=== PATIENT | male | born 1935 | race Caucasian/White ===

== ENCOUNTER → 2016-10-07 | Outpatient (CLI) | payer MEDICARE, BC ==
[~2016-10-07] MED LIST: ALDACTONE 25MG25 M1 PO; COUMADIN 1MG1 MG/TAB PO; COUMADIN1 MG PO; FAMOTIDINE 1010 MG PO; FAMOTIDINE PO; FLOMAX0.4 MG PO; FOSAMAX 70MG TA70 MG PO; GOOD NEIGHBOR P20 MG PO; GOOD NEIGHBOR325 MG PO; K-TAB20 MEQ PO; LEVAQUIN 5500 MG/TA1 PO; LOVENOX80 MG/0.8 SC; MEGACE 40MG40 MG/TAB PO; METOCLOPRAMIDE10 M1 PO; METOCLOPRAMIDE10 MG PO; MIRTAZAPINE15 MG PO; MULTIVITAMIN1 SGL; POTASSIUM20 MEQ PO; REMERON 15M15 MG/TA1 PO; REMERON SOLTAB15 MG PO; TYLENOL 325MG325 MG PO
== END ==
LOC: LAB 14:39
DX: C61 Malignant neoplasm of prostate (principal)

== ENCOUNTER → 2016-10-09 | Outpatient (CLI) | payer MEDICARE, BC | LOC: RAD 07:54 | DX: K70.30 Alcoholic cirrhosis of liver without ascites (principal); K80.20 Calculus of gallbladder without cholecystitis without obstruction ==

== ENCOUNTER → 2016-10-30 | Outpatient (CLI) | payer MEDICARE, BC | LOC: LAB 11:18 | DX: E83.19 Other disorders of iron metabolism (principal); K74.60 Unspecified cirrhosis of liver; K76.89 Other specified diseases of liver; R79.9 Abnormal finding of blood chemistry, unspecified ==

== ENCOUNTER → 2016-12-11 | Outpatient (CLI) | payer MEDICARE, BC | LOC: LAB 16:38 | DX: I10 Essential (primary) hypertension (principal); R10.31 Right lower quadrant pain; E87.6 Hypokalemia; K70.30 Alcoholic cirrhosis of liver without ascites ==

== ENCOUNTER → 2017-01-12 | Outpatient (CLI) | payer MEDICARE, BC ==
[2015-08-14 20:38] VITALS: BP 132/88
== END ==
LOC: LAB 13:46
DX: I10 Essential (primary) hypertension (principal); K70.30 Alcoholic cirrhosis of liver without ascites; M48.06 Spinal stenosis, lumbar region

== ENCOUNTER → 2017-01-19 | Outpatient (CLI) | payer MEDICARE, BC ==
[2015-08-14 20:38] VITALS: BP 132/88
== END ==
LOC: LAB 11:03
DX: R10.31 Right lower quadrant pain (principal); E87.6 Hypokalemia; I10 Essential (primary) hypertension

== ENCOUNTER → 2017-02-06 | Outpatient (CLI) | payer MEDICARE, BC ==
[2015-08-14 20:38] VITALS: BP 132/88
== END ==
LOC: RAD 09:55
DX: M79.605 Pain in left leg (principal); R60.0 Localized edema; I82.813 Embolism and thrombosis of superficial veins of lower extremities, bilateral; I82.4Z2 Acute embolism and thrombosis of unspecified deep veins of left distal lower extremity

== ENCOUNTER → 2017-02-09 | Outpatient (CLI) | payer MEDICARE, BC ==
[2015-08-14 20:38] VITALS: BP 132/88
== END ==
LOC: LAB 08:27
DX: Z51.81 Encounter for therapeutic drug level monitoring (principal); Z79.01 Long term (current) use of anticoagulants; I82.813 Embolism and thrombosis of superficial veins of lower extremities, bilateral; E87.1 Hypo-osmolality and hyponatremia

== ENCOUNTER → 2017-02-10 | Outpatient (CLI) | payer MEDICARE, BC ==
[~2017-02-10] VITALS: Ht 165.1 cm; Wt 63.6 kg
[2017-02-10 09:02] VITALS: BP 120/64
== END ==
LOC: AMSURD 09:05
DX: R63.5 Abnormal weight gain (principal); R60.9 Edema, unspecified; R06.09 Other forms of dyspnea

== ENCOUNTER → 2017-02-12 | Outpatient (CLI) | payer MEDICARE, BC ==
[2017-02-10 09:02] VITALS: BP 120/64
== END ==
LOC: LAB 10:21
DX: Z51.81 Encounter for therapeutic drug level monitoring (principal); Z79.01 Long term (current) use of anticoagulants; I82.813 Embolism and thrombosis of superficial veins of lower extremities, bilateral

== ENCOUNTER → 2017-02-17 | Outpatient (CLI) | payer MEDICARE, BC ==
[2017-02-10 09:02] VITALS: BP 120/64
== END ==
LOC: LAB 10:20
DX: I50.21 Acute systolic (congestive) heart failure (principal); R60.9 Edema, unspecified; R06.09 Other forms of dyspnea; R63.5 Abnormal weight gain; Z51.81 Encounter for therapeutic drug level monitoring; Z79.01 Long term (current) use of anticoagulants; I82.813 Embolism and thrombosis of superficial veins of lower extremities, bilateral

== ENCOUNTER → 2017-02-24 | Outpatient (CLI) | payer MEDICARE, BC ==
[2017-02-10 09:02] VITALS: BP 120/64
== END ==
LOC: LAB 11:51
DX: Z51.81 Encounter for therapeutic drug level monitoring (principal); Z79.01 Long term (current) use of anticoagulants; I82.813 Embolism and thrombosis of superficial veins of lower extremities, bilateral

== ENCOUNTER → 2017-02-26 | Outpatient (CLI) | payer MEDICARE, BC ==
[2017-02-10 09:02] VITALS: BP 120/64
== END ==
LOC: LAB 10:49
DX: Z51.81 Encounter for therapeutic drug level monitoring (principal); Z79.01 Long term (current) use of anticoagulants; I82.813 Embolism and thrombosis of superficial veins of lower extremities, bilateral; E87.1 Hypo-osmolality and hyponatremia

== ENCOUNTER → 2017-03-03 | Outpatient (CLI) | payer MEDICARE, BC ==
[2017-02-10 09:02] VITALS: BP 120/64
== END ==
LOC: LAB 08:42
DX: Z51.81 Encounter for therapeutic drug level monitoring (principal); Z79.01 Long term (current) use of anticoagulants; I82.813 Embolism and thrombosis of superficial veins of lower extremities, bilateral; E87.1 Hypo-osmolality and hyponatremia

== ENCOUNTER → 2017-03-09 | Outpatient (CLI) | payer MEDICARE, BC ==
[2017-02-10 09:02] VITALS: BP 120/64
== END ==
LOC: LAB 11:21
DX: Z51.81 Encounter for therapeutic drug level monitoring (principal); Z79.01 Long term (current) use of anticoagulants; I82.813 Embolism and thrombosis of superficial veins of lower extremities, bilateral

== ENCOUNTER → 2017-03-16 | Outpatient (CLI) | payer MEDICARE, BC ==
[2017-02-10 09:02] VITALS: BP 120/64
== END ==
LOC: VAS 17:11
DX: R06.02 Shortness of breath (principal); I34.0 Nonrheumatic mitral (valve) insufficiency

== ENCOUNTER → 2017-03-17 | Outpatient (CLI) | payer MEDICARE, BC ==
[2017-02-10 09:02] VITALS: BP 120/64
== END ==
LOC: LAB 11:31
DX: I10 Essential (primary) hypertension (principal); I82.813 Embolism and thrombosis of superficial veins of lower extremities, bilateral; K70.30 Alcoholic cirrhosis of liver without ascites; M48.06 Spinal stenosis, lumbar region; Z51.81 Encounter for therapeutic drug level monitoring; Z79.01 Long term (current) use of anticoagulants

== ENCOUNTER → 2017-03-23 | Outpatient (CLI) | payer MEDICARE, BC ==
[2017-02-10 09:02] VITALS: BP 120/64
== END ==
LOC: LAB 13:00
DX: I10 Essential (primary) hypertension (principal); I82.813 Embolism and thrombosis of superficial veins of lower extremities, bilateral; N30.00 Acute cystitis without hematuria; K70.30 Alcoholic cirrhosis of liver without ascites; M48.06 Spinal stenosis, lumbar region

== ENCOUNTER → 2017-03-31 | Outpatient (CLI) | payer MEDICARE, BC ==
[2017-02-10 09:02] VITALS: BP 120/64
== END ==
LOC: LAB 06:58
DX: Z51.81 Encounter for therapeutic drug level monitoring (principal); N30.00 Acute cystitis without hematuria; I82.813 Embolism and thrombosis of superficial veins of lower extremities, bilateral

== ENCOUNTER → 2017-04-07 | Outpatient (CLI) | payer MEDICARE, BC ==
[2017-02-10 09:02] VITALS: BP 120/64
== END ==
LOC: LAB 07:32
DX: N30.00 Acute cystitis without hematuria (principal); Z51.81 Encounter for therapeutic drug level monitoring; Z79.01 Long term (current) use of anticoagulants; I82.813 Embolism and thrombosis of superficial veins of lower extremities, bilateral; I10 Essential (primary) hypertension; K70.30 Alcoholic cirrhosis of liver without ascites; M48.06 Spinal stenosis, lumbar region; E87.1 Hypo-osmolality and hyponatremia

== ENCOUNTER → 2017-04-13 | Outpatient (CLI) | payer MEDICARE, BC ==
[2017-02-10 09:02] VITALS: BP 120/64
== END ==
LOC: LAB 11:12
DX: Z51.81 Encounter for therapeutic drug level monitoring (principal); Z79.01 Long term (current) use of anticoagulants; I82.813 Embolism and thrombosis of superficial veins of lower extremities, bilateral

== ENCOUNTER → 2017-04-20 | Outpatient (CLI) | payer MEDICARE, BC ==
[2017-02-10 09:02] VITALS: BP 120/64
== END ==
LOC: LAB 08:48
DX: I82.813 Embolism and thrombosis of superficial veins of lower extremities, bilateral (principal); R79.0 Abnormal level of blood mineral; R94.5 Abnormal results of liver function studies; K74.60 Unspecified cirrhosis of liver

== ENCOUNTER 2017-04-27 16:52 | Emergency (ER) | payer MEDICARE, BC ==
[~2017-04-27] VITALS: Wt 69.0 kg
[~2017-04-27 16:52] MED LIST changes: -MULTIVITAMIN1 SGL
[2017-04-27 16:56] VITALS: BP 128/80
[2017-04-27] MEDS ORDERED: MULTIVITAMIN1 SGL (17:02)
== END 2017-04-27 19:08 | disposition home or self-care (01) ==
LOC: ED 16:52
DX: E87.5 Hyperkalemia (principal); S40.022A Contusion of left upper arm, initial encounter; S40.021A Contusion of right upper arm, initial encounter; S50.12XA Contusion of left forearm, initial encounter; S50.11XA Contusion of right forearm, initial encounter; S41.112A Laceration without foreign body of left upper arm, initial encounter; S20.212A Contusion of left front wall of thorax, initial encounter; S20.211A Contusion of right front wall of thorax, initial encounter; Z91.81 History of falling; W01.10XA Fall on same level from slipping, tripping and stumbling with subsequent striking against unspecified object, initial encounter; Y92.009 Unspecified place in unspecified non-institutional (private) residence as the place of occurrence of the external cause; I10 Essential (primary) hypertension; Z86.718 Personal history of other venous thrombosis and embolism; Z79.01 Long term (current) use of anticoagulants; Y90.2 Blood alcohol level of 40-59 mg/100 ml

== ENCOUNTER → 2017-04-27 | Outpatient (CLI) | payer MEDICARE, BC ==
[2017-02-10 09:02] VITALS: BP 120/64
== END ==
LOC: LAB 09:26
DX: Z51.81 Encounter for therapeutic drug level monitoring (principal); Z79.01 Long term (current) use of anticoagulants; I82.813 Embolism and thrombosis of superficial veins of lower extremities, bilateral

== ENCOUNTER → 2017-04-28 | Outpatient (CLI) | payer MEDICARE, BC ==
[2017-04-27 16:56] VITALS: BP 128/80
[~2017-04-28] MED LIST changes: +MULTIVITAMIN1 SGL
== END ==
LOC: RAD 15:32
DX: M25.551 Pain in right hip (principal); M87.851 Other osteonecrosis, right femur; W19.XXXA Unspecified fall, initial encounter

== ENCOUNTER → 2017-05-04 | Outpatient (CLI) | payer MEDICARE, BC ==
[2017-04-27 16:56] VITALS: BP 128/80
== END ==
LOC: LAB 08:04
DX: I82.409 Acute embolism and thrombosis of unspecified deep veins of unspecified lower extremity (principal)

== ENCOUNTER → 2017-05-11 | Outpatient (CLI) | payer MEDICARE, BC ==
[2017-04-27 16:56] VITALS: BP 128/80
== END ==
LOC: RAD 09:35
DX: Z51.81 Encounter for therapeutic drug level monitoring (principal); Z79.01 Long term (current) use of anticoagulants; I82.813 Embolism and thrombosis of superficial veins of lower extremities, bilateral; C61 Malignant neoplasm of prostate; M25.562 Pain in left knee; W18.30XA Fall on same level, unspecified, initial encounter

== ENCOUNTER → 2017-05-18 | Outpatient (CLI) | payer MEDICARE, BC ==
[2017-04-27 16:56] VITALS: BP 128/80
== END ==
LOC: LAB 09:58
DX: I82.813 Embolism and thrombosis of superficial veins of lower extremities, bilateral (principal)

== ENCOUNTER → 2017-05-20 | Outpatient (CLI) | payer MEDICARE, BC ==
[2017-04-27 16:56] VITALS: BP 128/80
== END ==
LOC: LAB 11:03
DX: I82.813 Embolism and thrombosis of superficial veins of lower extremities, bilateral (principal)

== ENCOUNTER → 2017-05-27 | Outpatient (CLI) | payer MEDICARE, BC ==
[2017-04-27 16:56] VITALS: BP 128/80
== END ==
LOC: LAB 15:33
DX: I82.813 Embolism and thrombosis of superficial veins of lower extremities, bilateral (principal)

== ENCOUNTER → 2017-06-03 | Outpatient (CLI) | payer MEDICARE, BC | LOC: LAB 13:57 | DX: I82.813 Embolism and thrombosis of superficial veins of lower extremities, bilateral (principal) ==

== ENCOUNTER → 2017-06-11 | Outpatient (CLI) | payer MEDICARE, BC | LOC: LAB 13:22 | DX: Z51.81 Encounter for therapeutic drug level monitoring (principal); I82.813 Embolism and thrombosis of superficial veins of lower extremities, bilateral ==

== ENCOUNTER 2017-06-12 15:00 | Outpatient (RCR) | payer MEDICARE, BC ==
[2017-02-10 09:02] VITALS: BP 120/64
== END 2017-06-18 18:12 | disposition home or self-care (01) ==
LOC: PT 15:00
DX: M48.06 Spinal stenosis, lumbar region (principal); R53.1 Weakness
CPT/HCPCS: G8978-GP; G8979-GP

== ENCOUNTER → 2017-06-15 | Outpatient (CLI) | payer MEDICARE, BC | LOC: LAB 15:34 | DX: I82.813 Embolism and thrombosis of superficial veins of lower extremities, bilateral (principal) ==

== ENCOUNTER → 2017-06-22 | Outpatient (CLI) | payer MEDICARE, BC | LOC: LAB 15:20 | DX: I82.813 Embolism and thrombosis of superficial veins of lower extremities, bilateral (principal) ==

== ENCOUNTER → 2017-07-02 | Outpatient (CLI) | payer MEDICARE, BC ==
[~2017-07-02] VITALS: Ht 170.2 cm; Wt 67.7 kg
[2017-07-02] VITALS (9 sets, daily range): BP systolic 121–153; BP diastolic 58–75
[~2017-07-02] MED LIST changes: +LASIX20 M1 PO
[2017-07-03] VITALS (11 sets, daily range): BP systolic 111–131; BP diastolic 47–96
== END ==
LOC: AMSURD 14:20
DX: D64.89 Other specified anemias (principal); M87.852 Other osteonecrosis, left femur; M87.851 Other osteonecrosis, right femur; M16.0 Bilateral primary osteoarthritis of hip; R06.02 Shortness of breath
CPT/HCPCS: J7050; P9016

== ENCOUNTER → 2017-07-02 | Outpatient (CLI) | payer MEDICARE, BC | LOC: LAB 05:00 | DX: I10 Essential (primary) hypertension (principal); K70.30 Alcoholic cirrhosis of liver without ascites; M48.061 Spinal stenosis, lumbar region without neurogenic claudication; I82.403 Acute embolism and thrombosis of unspecified deep veins of lower extremity, bilateral; Z79.01 Long term (current) use of anticoagulants ==

== ENCOUNTER → 2017-07-03 | Outpatient (CLI) | payer MEDICARE, BC ==
[2017-07-03 03:45] VITALS: BP 116/69
== END ==
LOC: LAB 06:20
DX: R63.5 Abnormal weight gain (principal); R60.0 Localized edema; R06.09 Other forms of dyspnea

== ENCOUNTER → 2017-07-06 | Outpatient (CLI) | payer MEDICARE, BC ==
[2017-07-03 03:45] VITALS: BP 116/69
== END ==
LOC: LAB 16:24
DX: E83.19 Other disorders of iron metabolism (principal)

== ENCOUNTER → 2017-07-09 | Outpatient (CLI) | payer MEDICARE, BC ==
[2017-07-03 03:45] VITALS: BP 116/69
[2017-07-09 06:23] LABS: PROTHROMBIN TIME 10.6 SECONDS (9.0-12.0)
== END ==
LOC: LAB 05:53
PROVIDERS: Internal Medicine
DX: Z79.01 Long term (current) use of anticoagulants (principal); I82.403 Acute embolism and thrombosis of unspecified deep veins of lower extremity, bilateral

== ENCOUNTER → 2017-07-14 | Outpatient (CLI) | payer MEDICARE, BC ==
[2017-07-03 03:45] VITALS: BP 116/69
== END ==
LOC: LAB 10:30
DX: H57.8 Other specified disorders of eye and adnexa (principal)

== ENCOUNTER → 2017-07-17 | Outpatient (CLI) | payer MEDICARE, BC ==
[2017-07-03 03:45] VITALS: BP 116/69
[2017-07-17 10:10] LABS: EOS # 0.2 (0.04-0.40); EOS % 3.5 % (0.0-4.0); HEMATOCRIT 32.4 % (42.0-52.0); HEMOGLOBIN 9.9 g/dL (13.5-18.0); LYMPH# 0.8 (1.50-4.00); MEAN CELL VOLUME 103 fl (78-100); MEAN CORPUSCULAR HEMOGLOBIN 31 pg (27-31); MEAN CORPUSCULAR HGB CONC 31 g/dL (33-37); MEAN PLATELET VOLUME 10.3 fl (7.4-10.4); MONO # 0.4 (0.20-0.80); NEU # 3.7 (1.40-6.50); PLATELET COUNT 138 K/mm3 (130-400); RED BLOOD COUNT 3.16 M/mm3 (4.20-5.60); RED CELL DISTRIBUTION WIDTH 15.6 % (11.5-14.5); WHITE BLOOD COUNT 5.1 K/mm3 (4.8-10.8)
[2017-07-17 10:32] LABS: ALBUMIN 3.5 g/dL (3.5-5.0); BUN/CREATININE RATIO 10.5 (6.0-26.0); CALCIUM 9.2 mg/dL (8.4-10.2); POTASSIUM 5.1 mmol/L (3.6-5.0); TOTAL BILIRUBIN 0.7 mg/dL (0.2-1.3); TOTAL PROTEIN 7.4 g/dL (6.3-8.2)
== END ==
LOC: LAB 09:58
PROVIDERS: Internal Medicine
DX: K70.30 Alcoholic cirrhosis of liver without ascites (principal); K92.2 Gastrointestinal hemorrhage, unspecified; I82.403 Acute embolism and thrombosis of unspecified deep veins of lower extremity, bilateral

== ENCOUNTER → 2017-07-20 | Outpatient (CLI) | payer MEDICARE, BC ==
[2017-07-03 03:45] VITALS: BP 116/69
== END ==
LOC: RAD 08:40
DX: R93.5 Abnormal findings on diagnostic imaging of other abdominal regions, including retroperitoneum (principal); K70.30 Alcoholic cirrhosis of liver without ascites; R10.11 Right upper quadrant pain

== ENCOUNTER → 2017-08-03 | Outpatient (CLI) | payer MEDICARE, BC ==
[2017-07-03 03:45] VITALS: BP 116/69
[2017-08-03 14:39] LABS: EOS # 0.2 (0.04-0.40); EOS % 2.2 % (0.0-4.0); HEMATOCRIT 29.9 % (42.0-52.0); HEMOGLOBIN 9.4 g/dL (13.5-18.0); LYMPH# 1.4 (1.50-4.00); MEAN CELL VOLUME 102 fl (78-100); MEAN CORPUSCULAR HEMOGLOBIN 32 pg (27-31); MEAN CORPUSCULAR HGB CONC 31 g/dL (33-37); MONO # 0.7 (0.20-0.80); NEU # 4.4 (1.40-6.50); PLATELET COUNT 178 K/mm3 (130-400); RED BLOOD COUNT 2.94 M/mm3 (4.20-5.60); WHITE BLOOD COUNT 6.7 K/mm3 (4.8-10.8)
[2017-08-03 14:48] LABS: ALBUMIN 3.7 g/dL (3.5-5.0); BUN/CREATININE RATIO 9.5 (6.0-26.0); CALCIUM 9.2 mg/dL (8.4-10.2); TOTAL BILIRUBIN 0.5 mg/dL (0.2-1.3); TOTAL PROTEIN 7.4 g/dL (6.3-8.2)
[2017-08-03 15:32] LABS: POTASSIUM 6.6 mmol/L (3.6-5.0)
== END ==
LOC: LAB 14:12
PROVIDERS: Internal Medicine
DX: K70.30 Alcoholic cirrhosis of liver without ascites (principal); I82.403 Acute embolism and thrombosis of unspecified deep veins of lower extremity, bilateral; C61 Malignant neoplasm of prostate

== ENCOUNTER → 2017-08-17 | Day surgery (SDC) | payer MEDICARE, BC ==
[2017-07-03 03:45] VITALS: BP 116/69
== END ==
LOC: MSO 06:48
DX: D64.9 Anemia, unspecified (principal); K70.30 Alcoholic cirrhosis of liver without ascites; Z79.82 Long term (current) use of aspirin; I10 Essential (primary) hypertension; K21.9 Gastro-esophageal reflux disease without esophagitis; F10.21 Alcohol dependence, in remission; Z86.718 Personal history of other venous thrombosis and embolism; Z85.46 Personal history of malignant neoplasm of prostate
CPT/HCPCS: 00740; J7120

== ENCOUNTER → 2017-08-20 | Outpatient (CLI) | payer MEDICARE, BC ==
[2017-07-03 03:45] VITALS: BP 116/69
[2017-08-20 12:54] LABS: EOS # 0.1 (0.04-0.40); EOS % 1.6 % (0.0-4.0); HEMATOCRIT 28.8 % (42.0-52.0); LYMPH# 0.8 (1.50-4.00); MEAN CELL VOLUME 101 fl (78-100); MEAN CORPUSCULAR HEMOGLOBIN 32 pg (27-31); MEAN CORPUSCULAR HGB CONC 31 g/dL (33-37); MEAN PLATELET VOLUME 10.4 fl (7.4-10.4); MONO # 0.4 (0.20-0.80); NEU # 4.2 (1.40-6.50); PLATELET COUNT 167 K/mm3 (130-400); RED BLOOD COUNT 2.85 M/mm3 (4.20-5.60); RED CELL DISTRIBUTION WIDTH 15.1 % (11.5-14.5); WHITE BLOOD COUNT 5.6 K/mm3 (4.8-10.8)
[2017-08-20 13:13] LABS: PROTHROMBIN TIME 9.3 SECONDS (9.0-12.0)
[2017-08-20 13:15] LABS: ALBUMIN 3.7 g/dL (3.5-5.0); BUN/CREATININE RATIO 10.4 (6.0-26.0); CALCIUM 9.1 mg/dL (8.4-10.2); TOTAL BILIRUBIN 0.5 mg/dL (0.2-1.3); TOTAL PROTEIN 6.9 g/dL (6.3-8.2)
[2017-08-20 14:32] LABS: POTASSIUM 5.9 mmol/L (3.6-5.0)
== END ==
LOC: LAB 12:20
PROVIDERS: Internal Medicine
DX: I82.403 Acute embolism and thrombosis of unspecified deep veins of lower extremity, bilateral (principal); C61 Malignant neoplasm of prostate; M48.061 Spinal stenosis, lumbar region without neurogenic claudication

== ENCOUNTER → 2017-08-27 | Outpatient (CLI) | payer MEDICARE, BC ==
[2017-07-03 03:45] VITALS: BP 116/69
[2017-08-27 16:20] LABS: PROTHROMBIN TIME 10.1 SECONDS (9.0-12.0)
== END ==
LOC: LAB 15:38
PROVIDERS: Internal Medicine
DX: I82.813 Embolism and thrombosis of superficial veins of lower extremities, bilateral (principal)

== ENCOUNTER → 2017-09-03 | Outpatient (CLI) | payer MEDICARE, BC ==
[2017-07-03 03:45] VITALS: BP 116/69
[2017-09-03 13:40] LABS: PROTHROMBIN TIME 10.4 SECONDS (9.0-12.0)
== END ==
LOC: LAB 13:06
PROVIDERS: Internal Medicine
DX: I82.813 Embolism and thrombosis of superficial veins of lower extremities, bilateral (principal)

== ENCOUNTER → 2017-09-10 | Outpatient (CLI) | payer MEDICARE, BC ==
[2017-07-03 03:45] VITALS: BP 116/69
[2017-09-10 13:56] LABS: EOS # 0.1 (0.04-0.40); EOS % 1.3 % (0.0-4.0); HEMOGLOBIN 10.1 g/dL (13.5-18.0); MEAN CELL VOLUME 100 fl (78-100); MEAN CORPUSCULAR HEMOGLOBIN 32 pg (27-31); MEAN CORPUSCULAR HGB CONC 32 g/dL (33-37); MEAN PLATELET VOLUME 10.1 fl (7.4-10.4); MONO # 0.5 (0.20-0.80); NEU # 5.2 (1.40-6.50); PLATELET COUNT 166 K/mm3 (130-400); RED BLOOD COUNT 3.19 M/mm3 (4.20-5.60); RED CELL DISTRIBUTION WIDTH 14.9 % (11.5-14.5); WHITE BLOOD COUNT 6.9 K/mm3 (4.8-10.8)
[2017-09-10 14:01] LABS: PROTHROMBIN TIME 10.6 SECONDS (9.0-12.0)
[2017-09-10 14:07] LABS: BUN/CREATININE RATIO 8.3 (6.0-26.0); CALCIUM 9.6 mg/dL (8.4-10.2); POTASSIUM 5.2 mmol/L (3.6-5.0); TOTAL BILIRUBIN 0.4 mg/dL (0.2-1.3); TOTAL PROTEIN 7.5 g/dL (6.3-8.2)
== END ==
LOC: RAD 13:38
PROVIDERS: Internal Medicine
DX: M87.851 Other osteonecrosis, right femur (principal); M16.12 Unilateral primary osteoarthritis, left hip; M87.852 Other osteonecrosis, left femur; I82.403 Acute embolism and thrombosis of unspecified deep veins of lower extremity, bilateral; I10 Essential (primary) hypertension; K70.30 Alcoholic cirrhosis of liver without ascites

== ENCOUNTER → 2017-09-17 | Outpatient (CLI) | payer MEDICARE, BC ==
[2017-07-03 03:45] VITALS: BP 116/69
[2017-09-17 10:53] LABS: PROTHROMBIN TIME 13.3 SECONDS (9.0-12.0)
== END ==
LOC: LAB 10:22
PROVIDERS: Internal Medicine
DX: I82.813 Embolism and thrombosis of superficial veins of lower extremities, bilateral (principal)

== ENCOUNTER → 2017-09-24 | Outpatient (CLI) | payer MEDICARE, BC ==
[2017-07-03 03:45] VITALS: BP 116/69
[2017-09-24 12:23] LABS: PROTHROMBIN TIME 16.6 SECONDS (9.0-12.0)
== END ==
LOC: LAB 11:45
PROVIDERS: Internal Medicine
DX: I82.813 Embolism and thrombosis of superficial veins of lower extremities, bilateral (principal)

== ENCOUNTER → 2017-10-02 | Outpatient (CLI) | payer MEDICARE, BC ==
[2017-07-03 03:45] VITALS: BP 116/69
[2017-10-02 12:33] LABS: PROTHROMBIN TIME 28.8 SECONDS (9.0-12.0)
== END ==
LOC: LAB 11:58
PROVIDERS: Internal Medicine
DX: I82.813 Embolism and thrombosis of superficial veins of lower extremities, bilateral (principal)

== ENCOUNTER → 2017-10-15 | Outpatient (CLI) | payer MEDICARE, BC ==
[2017-07-03 03:45] VITALS: BP 116/69
== END ==
LOC: LAB 11:06
PROVIDERS: Internal Medicine
DX: I82.813 Embolism and thrombosis of superficial veins of lower extremities, bilateral (principal)

== ENCOUNTER → 2017-10-22 | Outpatient (CLI) | payer MEDICARE, BC ==
[2017-07-03 03:45] VITALS: BP 116/69
[2017-10-22 14:49] LABS: PROTHROMBIN TIME 29.1 SECONDS (9.0-12.0)
== END ==
LOC: LAB 14:11
PROVIDERS: Internal Medicine
DX: I82.813 Embolism and thrombosis of superficial veins of lower extremities, bilateral (principal)

== ENCOUNTER → 2017-11-06 | Outpatient (CLI) | payer MEDICARE, BC ==
[2017-07-03 03:45] VITALS: BP 116/69
[2017-11-06 09:16] LABS: PROTHROMBIN TIME 21.8 SECONDS (9.0-12.0)
== END ==
LOC: LAB 08:51
PROVIDERS: Internal Medicine
DX: I82.813 Embolism and thrombosis of superficial veins of lower extremities, bilateral (principal)

== ENCOUNTER → 2017-11-13 | Outpatient (CLI) | payer MEDICARE, BC ==
[2017-07-03 03:45] VITALS: BP 116/69
[2017-11-13 10:10] LABS: PROTHROMBIN TIME 20.8 SECONDS (9.0-12.0)
== END ==
LOC: LAB 09:42
PROVIDERS: Internal Medicine
DX: C61 Malignant neoplasm of prostate (principal); I82.813 Embolism and thrombosis of superficial veins of lower extremities, bilateral

== ENCOUNTER → 2017-11-19 | Outpatient (CLI) | payer MEDICARE, BC ==
[2017-07-03 03:45] VITALS: BP 116/69
[2017-11-19 10:15] LABS: PROTHROMBIN TIME 22.1 SECONDS (9.0-12.0)
== END ==
LOC: LAB 09:50
PROVIDERS: Internal Medicine
DX: I82.813 Embolism and thrombosis of superficial veins of lower extremities, bilateral (principal)

== ENCOUNTER → 2017-11-27 | Outpatient (CLI) | payer MEDICARE, BC ==
[2017-07-03 03:45] VITALS: BP 116/69
[2017-11-27 12:21] LABS: HEMOGLOBIN 10.4 g/dL (13.5-18.0); MEAN CELL VOLUME 97 fl (78-100); MEAN CORPUSCULAR HEMOGLOBIN 31 pg (27-31); MEAN CORPUSCULAR HGB CONC 32 g/dL (33-37); MEAN PLATELET VOLUME 10.9 fl (7.4-10.4); PLATELET COUNT 229 K/mm3 (130-400); RED BLOOD COUNT 3.41 M/mm3 (4.20-5.60); RED CELL DISTRIBUTION WIDTH 14.9 % (11.5-14.5); WHITE BLOOD COUNT 10.4 K/mm3 (4.8-10.8)
[2017-11-27 12:33] LABS: ALBUMIN 4.2 g/dL (3.5-5.0); BUN/CREATININE RATIO 7.9 (6.0-26.0); CALCIUM 9.6 mg/dL (8.4-10.2); TOTAL BILIRUBIN 0.3 mg/dL (0.2-1.3)
[2017-11-27 12:57] LABS: NEUTROPHILS 82 % (42-75)
[2017-11-27 12:58] LABS: LYMPHOCYTE 12 % (20-51); MONOCYTE 6 % (3-10)
[2017-11-27 13:32] LABS: ERYTHROCYTE SEDIMENTATION RATE 75 mm/hr (0-20)
[2017-11-27 13:39] LABS: POTASSIUM 5.9 mmol/L (3.6-5.0)
[2017-11-27 14:34] LABS: PROTHROMBIN TIME 42.6 SECONDS (9.0-12.0)
== END ==
LOC: LAB 10:34
PROVIDERS: Internal Medicine
DX: K70.30 Alcoholic cirrhosis of liver without ascites (principal); M81.0 Age-related osteoporosis without current pathological fracture; I10 Essential (primary) hypertension; C61 Malignant neoplasm of prostate; D50.9 Iron deficiency anemia, unspecified; E03.4 Atrophy of thyroid (acquired); R53.83 Other fatigue; I82.813 Embolism and thrombosis of superficial veins of lower extremities, bilateral

== ENCOUNTER → 2017-12-01 | Outpatient (CLI) | payer MEDICARE, BC ==
[2017-07-03 03:45] VITALS: BP 116/69
== END ==
LOC: LAB 10:33
PROVIDERS: Internal Medicine
DX: I82.813 Embolism and thrombosis of superficial veins of lower extremities, bilateral (principal)

== ENCOUNTER → 2017-12-03 | Outpatient (CLI) | payer MEDICARE, BC ==
[2017-07-03 03:45] VITALS: BP 116/69
[2017-12-03 11:30] LABS: BUN/CREATININE RATIO 9.7 (6.0-26.0); POTASSIUM 5.7 mmol/L (3.6-5.0)
== END ==
LOC: LAB 10:26
PROVIDERS: Internal Medicine
DX: I10 Essential (primary) hypertension (principal)

== ENCOUNTER → 2017-12-07 | Outpatient (CLI) | payer MEDICARE, BC ==
[2017-07-03 03:45] VITALS: BP 116/69
[2017-12-07 10:03] LABS: PROTHROMBIN TIME 13.3 SECONDS (9.0-12.0)
[2017-12-07 10:04] LABS: BUN/CREATININE RATIO 8.8 (6.0-26.0)
== END ==
LOC: LAB 09:05
PROVIDERS: Internal Medicine
DX: I82.813 Embolism and thrombosis of superficial veins of lower extremities, bilateral (principal)

== ENCOUNTER → 2017-12-14 | Outpatient (CLI) | payer MEDICARE, BC ==
[2017-07-03 03:45] VITALS: BP 116/69
[2017-12-14 09:33] LABS: BUN/CREATININE RATIO 8.2 (6.0-26.0); CALCIUM 9.1 mg/dL (8.4-10.2); POTASSIUM 5.5 mmol/L (3.6-5.0)
[2017-12-14 09:54] LABS: PROTHROMBIN TIME 14.5 SECONDS (9.0-12.0)
== END ==
LOC: LAB 08:44
PROVIDERS: Internal Medicine
DX: I10 Essential (primary) hypertension (principal); I82.813 Embolism and thrombosis of superficial veins of lower extremities, bilateral

== ENCOUNTER → 2017-12-21 | Outpatient (CLI) | payer MEDICARE, BC ==
[2017-07-03 03:45] VITALS: BP 116/69
[2017-12-21 10:26] LABS: PROTHROMBIN TIME 19.3 SECONDS (9.0-12.0)
[2017-12-21 10:35] LABS: BUN/CREATININE RATIO 6.5 (6.0-26.0); CALCIUM 9.2 mg/dL (8.4-10.2); POTASSIUM 4.5 mmol/L (3.6-5.0)
== END ==
LOC: RAD 08:56
PROVIDERS: Internal Medicine
DX: I12.9 Hypertensive chronic kidney disease with stage 1 through stage 4 chronic kidney disease, or unspecified chronic kidney disease (principal); N18.3 Chronic kidney disease, stage 3 (moderate); K70.30 Alcoholic cirrhosis of liver without ascites; C61 Malignant neoplasm of prostate

== ENCOUNTER → 2017-12-28 | Outpatient (CLI) | payer MEDICARE, BC ==
[2017-07-03 03:45] VITALS: BP 116/69
[2017-12-28 11:01] LABS: BUN/CREATININE RATIO 7.9 (6.0-26.0); POTASSIUM 4.4 mmol/L (3.6-5.0)
[2017-12-28 11:12] LABS: PROTHROMBIN TIME 17.8 SECONDS (9.0-12.0)
== END ==
LOC: LAB 09:44
PROVIDERS: Internal Medicine
DX: I82.813 Embolism and thrombosis of superficial veins of lower extremities, bilateral (principal); I12.9 Hypertensive chronic kidney disease with stage 1 through stage 4 chronic kidney disease, or unspecified chronic kidney disease; N18.3 Chronic kidney disease, stage 3 (moderate)

== ENCOUNTER → 2018-01-04 | Outpatient (CLI) | payer MEDICARE, BC ==
[2017-07-03 03:45] VITALS: BP 116/69
[2018-01-04 10:11] LABS: PROTHROMBIN TIME 23.6 SECONDS (9.0-12.0)
== END ==
LOC: LAB 09:05
PROVIDERS: Internal Medicine
DX: I82.813 Embolism and thrombosis of superficial veins of lower extremities, bilateral (principal)

== ENCOUNTER → 2018-01-18 | Outpatient (CLI) | payer MEDICARE, BC ==
[2017-07-03 03:45] VITALS: BP 116/69
[2018-01-18 10:48] LABS: BUN/CREATININE RATIO 5.5 (6.0-26.0); CALCIUM 8.8 mg/dL (8.4-10.2); POTASSIUM 3.6 mmol/L (3.6-5.0)
[2018-01-18 10:58] LABS: PROTHROMBIN TIME 28.5 SECONDS (9.0-12.0)
== END ==
LOC: LAB 09:25
PROVIDERS: Internal Medicine
DX: I10 Essential (primary) hypertension (principal); N18.3 Chronic kidney disease, stage 3 (moderate); I82.813 Embolism and thrombosis of superficial veins of lower extremities, bilateral

== ENCOUNTER → 2018-01-21 | Outpatient (CLI) | payer MEDICARE, BC ==
[2017-07-03 03:45] VITALS: BP 116/69
[2018-01-21 13:11] LABS: PROTHROMBIN TIME 29.7 SECONDS (9.0-12.0)
== END ==
LOC: LAB 12:48
PROVIDERS: Internal Medicine
DX: I82.813 Embolism and thrombosis of superficial veins of lower extremities, bilateral (principal)

== ENCOUNTER → 2018-03-01 | Outpatient (CLI) | payer MEDICARE, BC ==
[2017-07-03 03:45] VITALS: BP 116/69
[2018-03-01 11:29] LABS: PROTHROMBIN TIME 22.4 SECONDS (9.0-12.0)
== END ==
LOC: LAB 10:10
PROVIDERS: Internal Medicine
DX: I82.813 Embolism and thrombosis of superficial veins of lower extremities, bilateral (principal)

== ENCOUNTER → 2018-03-15 | Day surgery (SDC) | payer MEDICARE, BC ==
[2017-07-03 03:45] VITALS: BP 116/69
== END | disposition home or self-care (01) ==
LOC: MSO 09:36
DX: C44.629 Squamous cell carcinoma of skin of left upper limb, including shoulder (principal)

== ENCOUNTER → 2018-03-15 | Outpatient (CLI) | payer MEDICARE, BC ==
[2017-07-03 03:45] VITALS: BP 116/69
[2018-03-15 10:14] LABS: PROTHROMBIN TIME 11.4 SECONDS (9.0-12.0)
== END ==
LOC: LAB 09:40
PROVIDERS: Internal Medicine
DX: I82.813 Embolism and thrombosis of superficial veins of lower extremities, bilateral (principal)

== ENCOUNTER → 2018-04-26 | Outpatient (CLI) | payer MEDICARE, BC ==
[2017-07-03 03:45] VITALS: BP 116/69
[2018-04-26 10:11] LABS: EOS # 0.1 (0.04-0.40); EOS % 2.9 % (0.0-4.0); HEMATOCRIT 34.7 % (42.0-52.0); HEMOGLOBIN 11.3 g/dL (13.5-18.0); LYMPH# 1.1 (1.50-4.00); MEAN CELL VOLUME 94 fl (78-100); MEAN CORPUSCULAR HEMOGLOBIN 31 pg (27-31); MEAN CORPUSCULAR HGB CONC 33 g/dL (33-37); MEAN PLATELET VOLUME 11.7 fl (7.4-10.4); MONO # 0.4 (0.20-0.80); NEU # 3.2 (1.40-6.50); PLATELET COUNT 141 K/mm3 (130-400); RED BLOOD COUNT 3.71 M/mm3 (4.20-5.60); RED CELL DISTRIBUTION WIDTH 14.7 % (11.5-14.5); WHITE BLOOD COUNT 4.9 K/mm3 (4.8-10.8)
[2018-04-26 10:36] LABS: PROTHROMBIN TIME 26.8 SECONDS (9.0-12.0)
[2018-04-26 10:43] LABS: ALBUMIN 3.9 g/dL (3.5-5.0); BUN/CREATININE RATIO 7.3 (6.0-26.0); CALCIUM 8.9 mg/dL (8.4-10.2); POTASSIUM 3.6 mmol/L (3.6-5.0); TOTAL BILIRUBIN 0.3 mg/dL (0.2-1.3); TOTAL PROTEIN 7.1 g/dL (6.3-8.2)
[2018-04-26 11:15] LABS: ERYTHROCYTE SEDIMENTATION RATE 60 mm/hr (0-20)
== END ==
LOC: LAB 09:42
PROVIDERS: Internal Medicine
DX: E83.110 Hereditary hemochromatosis (principal); I10 Essential (primary) hypertension; I82.403 Acute embolism and thrombosis of unspecified deep veins of lower extremity, bilateral; Z12.5 Encounter for screening for malignant neoplasm of prostate; M81.0 Age-related osteoporosis without current pathological fracture; K70.30 Alcoholic cirrhosis of liver without ascites; E87.6 Hypokalemia

== ENCOUNTER → 2018-05-07 | Outpatient (CLI) | payer MEDICARE, BC ==
[2017-07-03 03:45] VITALS: BP 116/69
== END ==
LOC: LAB 11:36
PROVIDERS: Internal Medicine
DX: I82.813 Embolism and thrombosis of superficial veins of lower extremities, bilateral (principal)

== ENCOUNTER → 2018-05-11 | Outpatient (CLI) | payer MEDICARE, BC ==
[2017-07-03 03:45] VITALS: BP 116/69
[2018-05-11 11:00] LABS: PROTHROMBIN TIME 13.8 SECONDS (9.0-12.0)
== END ==
LOC: RAD 09:31 → LAB 10:00 → RAD 10:00 → MAMMO 10:00
PROVIDERS: Internal Medicine
DX: I82.409 Acute embolism and thrombosis of unspecified deep veins of unspecified lower extremity (principal)

== ENCOUNTER 2018-05-28 13:00 | Outpatient (RCR) | payer MEDICARE, BC ==
[2017-07-03 03:45] VITALS: BP 116/69
== END 2018-08-05 | disposition home or self-care (01) ==
LOC: PT
DX: M75.22 Bicipital tendinitis, left shoulder (principal)
CPT/HCPCS: G8985-GP

== ENCOUNTER → 2018-05-28 | Outpatient (CLI) | payer MEDICARE, BC ==
[2017-07-03 03:45] VITALS: BP 116/69
== END ==
LOC: RAD 13:25
DX: M19.012 Primary osteoarthritis, left shoulder (principal)

== ENCOUNTER → 2018-06-08 | Outpatient (CLI) | payer MEDICARE, BC ==
[2017-07-03 03:45] VITALS: BP 116/69
[2018-06-08 10:51] LABS: PROTHROMBIN TIME 25.4 SECONDS (9.0-12.0)
== END ==
LOC: RAD 09:19 → MAMMO 10:00 → RAD 10:00
PROVIDERS: Internal Medicine
DX: M81.0 Age-related osteoporosis without current pathological fracture (principal); M25.512 Pain in left shoulder; I82.409 Acute embolism and thrombosis of unspecified deep veins of unspecified lower extremity

== ENCOUNTER → 2018-06-15 | Outpatient (CLI) | payer MEDICARE, BC ==
[2017-07-03 03:45] VITALS: BP 116/69
[2018-06-15 11:05] LABS: PROTHROMBIN TIME 20.3 SECONDS (9.0-12.0)
[2018-06-15 12:17] LABS: EOS # 0.2 (0.04-0.40); EOS % 3.1 % (0.0-4.0); HEMATOCRIT 33.4 % (42.0-52.0); HEMOGLOBIN 10.5 g/dL (13.5-18.0); LYMPH# 1.3 (1.50-4.00); MEAN CELL VOLUME 95 fl (78-100); MEAN CORPUSCULAR HEMOGLOBIN 30 pg (27-31); MEAN CORPUSCULAR HGB CONC 31 g/dL (33-37); MONO # 0.4 (0.20-0.80); NEU # 3.3 (1.40-6.50); PLATELET COUNT 130 K/mm3 (130-400); RED CELL DISTRIBUTION WIDTH 14.7 % (11.5-14.5); WHITE BLOOD COUNT 5.1 K/mm3 (4.8-10.8)
[2018-06-15 12:20] LABS: MEAN PLATELET VOLUME 12.4 fl (7.4-10.4)
[2018-06-15 12:25] LABS: POTASSIUM 4.7 mmol/L (3.6-5.0); TOTAL BILIRUBIN 0.4 mg/dL (0.2-1.3); TOTAL PROTEIN 7.2 g/dL (6.3-8.2)
== END ==
LOC: LAB 09:06
PROVIDERS: Urology
DX: C61 Malignant neoplasm of prostate (principal); I12.9 Hypertensive chronic kidney disease with stage 1 through stage 4 chronic kidney disease, or unspecified chronic kidney disease; N18.3 Chronic kidney disease, stage 3 (moderate); I82.403 Acute embolism and thrombosis of unspecified deep veins of lower extremity, bilateral; N39.41 Urge incontinence; K70.30 Alcoholic cirrhosis of liver without ascites; M81.0 Age-related osteoporosis without current pathological fracture

== ENCOUNTER → 2018-08-06 | Outpatient (CLI) | payer MEDICARE, BC ==
[2017-07-03 03:45] VITALS: BP 116/69
[2018-08-06 13:27] LABS: PROTHROMBIN TIME 30.8 SECONDS (9.0-12.0)
== END ==
LOC: LAB 12:35
PROVIDERS: Internal Medicine
DX: N18.3 Chronic kidney disease, stage 3 (moderate) (principal); I82.403 Acute embolism and thrombosis of unspecified deep veins of lower extremity, bilateral

== ENCOUNTER → 2018-08-17 | Outpatient (CLI) | payer MEDICARE, BC ==
[2017-07-03 03:45] VITALS: BP 116/69
[2018-08-17 15:57] LABS: PROTHROMBIN TIME 24.4 SECONDS (9.0-12.0)
== END ==
LOC: LAB 13:00
PROVIDERS: Internal Medicine
DX: N18.3 Chronic kidney disease, stage 3 (moderate) (principal); I82.403 Acute embolism and thrombosis of unspecified deep veins of lower extremity, bilateral

== ENCOUNTER → 2018-11-03 | Outpatient (CLI) | payer MEDICARE, BC ==
[2017-07-03 03:45] VITALS: BP 116/69
[2018-11-03 10:24] LABS: CALCIUM 8.8 mg/dL (8.4-10.2)
[2018-11-03 14:37] LABS: PROTHROMBIN TIME 22.8 SECONDS (9.0-12.0)
== END ==
LOC: LAB 09:36
PROVIDERS: Internal Medicine
DX: I82.403 Acute embolism and thrombosis of unspecified deep veins of lower extremity, bilateral (principal); I12.9 Hypertensive chronic kidney disease with stage 1 through stage 4 chronic kidney disease, or unspecified chronic kidney disease; N18.3 Chronic kidney disease, stage 3 (moderate)

== ENCOUNTER → 2018-11-18 | Outpatient (CLI) | payer MEDICARE, BC ==
[2017-07-03 03:45] VITALS: BP 116/69
[2018-11-19 11:42] LABS: PROTHROMBIN TIME 30.9 SECONDS (9.0-12.0)
== END ==
LOC: LAB 10:34
PROVIDERS: Internal Medicine
DX: I82.403 Acute embolism and thrombosis of unspecified deep veins of lower extremity, bilateral (principal); C61 Malignant neoplasm of prostate

== ENCOUNTER → 2018-12-02 | Outpatient (CLI) | payer MEDICARE, BC ==
[2017-07-03 03:45] VITALS: BP 116/69
[2018-12-02 11:00] LABS: CALCIUM 8.9 mg/dL (8.4-10.2); POTASSIUM 4.3 mmol/L (3.6-5.0); TOTAL BILIRUBIN 0.3 mg/dL (0.2-1.3); TOTAL PROTEIN 7.2 g/dL (6.3-8.2)
[2018-12-02 11:10] LABS: EOS # 0.2 (0.04-0.40); EOS % 2.8 % (0.0-4.0); HEMATOCRIT 32.5 % (42.0-52.0); HEMOGLOBIN 10.3 g/dL (13.5-18.0); LYMPH# 1.1 (1.50-4.00); MEAN CELL VOLUME 96 fl (78-100); MEAN CORPUSCULAR HEMOGLOBIN 31 pg (27-31); MEAN CORPUSCULAR HGB CONC 32 g/dL (33-37); MEAN PLATELET VOLUME 10.8 fl (7.4-10.4); MONO # 0.6 (0.20-0.80); NEU # 4.1 (1.40-6.50); PLATELET COUNT 162 K/mm3 (130-400); RED BLOOD COUNT 3.38 M/mm3 (4.20-5.60)
[2018-12-02 11:19] LABS: PROTHROMBIN TIME 26.8 SECONDS (9.0-12.0)
== END ==
LOC: LAB 10:26
PROVIDERS: Nurse Practitioner
DX: I82.403 Acute embolism and thrombosis of unspecified deep veins of lower extremity, bilateral (principal); N18.3 Chronic kidney disease, stage 3 (moderate); L03.90 Cellulitis, unspecified

== ENCOUNTER → 2019-01-03 | Outpatient (CLI) | payer MEDICARE, BC ==
[2017-07-03 03:45] VITALS: BP 116/69
[2019-01-03 15:27] LABS: EOS # 0.1 (0.04-0.40); EOS % 1.3 % (0.0-4.0); HEMOGLOBIN 11.6 g/dL (13.5-18.0); LYMPH# 1.1 (1.50-4.00); MEAN CELL VOLUME 95 fl (78-100); MEAN CORPUSCULAR HEMOGLOBIN 32 pg (27-31); MEAN CORPUSCULAR HGB CONC 33 g/dL (33-37); MEAN PLATELET VOLUME 10.8 fl (7.4-10.4); MONO # 0.5 (0.20-0.80); NEU # 4.4 (1.40-6.50); PLATELET COUNT 146 K/mm3 (130-400); RED BLOOD COUNT 3.67 M/mm3 (4.20-5.60); RED CELL DISTRIBUTION WIDTH 14.9 % (11.5-14.5); WHITE BLOOD COUNT 6.1 K/mm3 (4.8-10.8)
[2019-01-03 15:37] LABS: ALBUMIN 4.6 g/dL (3.5-5.0); CALCIUM 9.3 mg/dL (8.4-10.2); POTASSIUM 3.9 mmol/L (3.6-5.0); TOTAL BILIRUBIN 0.4 mg/dL (0.2-1.3); TOTAL PROTEIN 7.7 g/dL (6.3-8.2)
[2019-01-03 15:40] LABS: PROTHROMBIN TIME 32.7 SECONDS (9.0-12.0)
[2019-01-03 18:15] LABS: ERYTHROCYTE SEDIMENTATION RATE 39 mm/hr (0-20)
== END ==
LOC: LAB 14:27
PROVIDERS: Internal Medicine
DX: E83.110 Hereditary hemochromatosis (principal); M81.0 Age-related osteoporosis without current pathological fracture; I12.9 Hypertensive chronic kidney disease with stage 1 through stage 4 chronic kidney disease, or unspecified chronic kidney disease; N18.3 Chronic kidney disease, stage 3 (moderate); I82.403 Acute embolism and thrombosis of unspecified deep veins of lower extremity, bilateral; E87.6 Hypokalemia; C61 Malignant neoplasm of prostate; K70.30 Alcoholic cirrhosis of liver without ascites

== ENCOUNTER → 2019-02-07 | Day surgery (SDC) | payer MEDICARE, BC ==
[2017-07-03 03:45] VITALS: BP 116/69
== END ==
LOC: MSO 11:10
DX: C44.42 Squamous cell carcinoma of skin of scalp and neck (principal); L57.0 Actinic keratosis; D04.4 Carcinoma in situ of skin of scalp and neck; I10 Essential (primary) hypertension; Z98.52 Vasectomy status; M81.0 Age-related osteoporosis without current pathological fracture; Z82.49 Family history of ischemic heart disease and other diseases of the circulatory system; Z79.01 Long term (current) use of anticoagulants

== ENCOUNTER → 2019-03-14 | Outpatient (CLI) | payer MEDICARE, BC ==
[2017-07-03 03:45] VITALS: BP 116/69
[2019-03-14 11:23] LABS: PROTHROMBIN TIME 16.1 SECONDS (9.0-12.0)
== END ==
LOC: LAB 10:49
PROVIDERS: Internal Medicine
DX: I82.403 Acute embolism and thrombosis of unspecified deep veins of lower extremity, bilateral (principal); N18.3 Chronic kidney disease, stage 3 (moderate)

== ENCOUNTER → 2019-05-12 | Outpatient (CLI) | payer MEDICARE, BC ==
[2017-07-03 03:45] VITALS: BP 116/69
== END ==
LOC: LAB 11:46
PROVIDERS: Urology
DX: I82.403 Acute embolism and thrombosis of unspecified deep veins of lower extremity, bilateral (principal); C61 Malignant neoplasm of prostate; N18.3 Chronic kidney disease, stage 3 (moderate)

== ENCOUNTER → 2019-05-19 | Outpatient (CLI) | payer MEDICARE, BC ==
[2017-07-03 03:45] VITALS: BP 116/69
[2019-05-19 10:20] LABS: PROTHROMBIN TIME 61.4 SECONDS (9.0-12.0)
== END ==
LOC: LAB 09:01
PROVIDERS: Internal Medicine
DX: I82.403 Acute embolism and thrombosis of unspecified deep veins of lower extremity, bilateral (principal); N18.3 Chronic kidney disease, stage 3 (moderate)

== ENCOUNTER → 2019-05-23 | Outpatient (CLI) | payer MEDICARE, BC ==
[2017-07-03 03:45] VITALS: BP 116/69
[2019-05-23 08:38] LABS: EOS # 0.1 (0.04-0.40); EOS % 2.7 % (0.0-4.0); HEMATOCRIT 38.9 % (42.0-52.0); HEMOGLOBIN 12.7 g/dL (13.5-18.0); LYMPH# 1.1 (1.50-4.00); MEAN CELL VOLUME 98 fl (78-100); MEAN CORPUSCULAR HEMOGLOBIN 32 pg (27-31); MEAN CORPUSCULAR HGB CONC 33 g/dL (33-37); MEAN PLATELET VOLUME 11.3 fl (7.4-10.4); MONO # 0.6 (0.20-0.80); NEU # 3.4 (1.40-6.50); PLATELET COUNT 154 K/mm3 (130-400); RED BLOOD COUNT 3.98 M/mm3 (4.20-5.60); RED CELL DISTRIBUTION WIDTH 14.9 % (11.5-14.5); WHITE BLOOD COUNT 5.2 K/mm3 (4.8-10.8)
[2019-05-23 08:56] LABS: ALBUMIN 3.6 g/dL (3.4-4.8); POTASSIUM 3.5 mmol/L (3.5-5.1)
[2019-05-23 08:57] LABS: CALCIUM 8.9 mg/dL (8.3-10.5)
[2019-05-23 09:00] LABS: TOTAL BILIRUBIN 0.5 mg/dL (0.2-1.2)
[2019-05-23 11:34] LABS: ERYTHROCYTE SEDIMENTATION RATE 18 mm/hr (0-20)
== END ==
LOC: LAB 07:22
PROVIDERS: Internal Medicine
DX: I82.403 Acute embolism and thrombosis of unspecified deep veins of lower extremity, bilateral (principal); E83.110 Hereditary hemochromatosis; M81.0 Age-related osteoporosis without current pathological fracture; K70.30 Alcoholic cirrhosis of liver without ascites; N18.3 Chronic kidney disease, stage 3 (moderate); I12.9 Hypertensive chronic kidney disease with stage 1 through stage 4 chronic kidney disease, or unspecified chronic kidney disease; C61 Malignant neoplasm of prostate; E87.6 Hypokalemia

== ENCOUNTER → 2019-05-30 | Outpatient (CLI) | payer MEDICARE, BC ==
[2017-07-03 03:45] VITALS: BP 116/69
[2019-05-30 10:13] LABS: PROTHROMBIN TIME 58.6 SECONDS (9.0-12.0)
== END ==
LOC: LAB 08:05
PROVIDERS: Internal Medicine
DX: I82.403 Acute embolism and thrombosis of unspecified deep veins of lower extremity, bilateral (principal); N18.3 Chronic kidney disease, stage 3 (moderate)

== ENCOUNTER → 2019-06-02 | Outpatient (CLI) | payer MEDICARE, BC ==
[2017-07-03 03:45] VITALS: BP 116/69
[2019-06-02 08:34] LABS: PROTHROMBIN TIME 32.4 SECONDS (9.0-12.0)
== END ==
LOC: LAB 08:07
PROVIDERS: Internal Medicine
DX: I82.403 Acute embolism and thrombosis of unspecified deep veins of lower extremity, bilateral (principal); N18.3 Chronic kidney disease, stage 3 (moderate)

== ENCOUNTER → 2019-06-09 | Outpatient (CLI) | payer MEDICARE, BC ==
[2017-07-03 03:45] VITALS: BP 116/69
[2019-06-09 09:13] LABS: PROTHROMBIN TIME 13.2 SECONDS (9.0-12.0)
== END ==
LOC: RAD 08:04 → LAB 08:04 → MAMMO 10:00
PROVIDERS: Internal Medicine
DX: N18.3 Chronic kidney disease, stage 3 (moderate) (principal); I82.403 Acute embolism and thrombosis of unspecified deep veins of lower extremity, bilateral

== ENCOUNTER → 2019-06-16 | Outpatient (CLI) | payer MEDICARE, BC ==
[2017-07-03 03:45] VITALS: BP 116/69
[2019-06-16 08:40] LABS: PROTHROMBIN TIME 25.5 SECONDS (9.0-12.0)
== END ==
LOC: LAB 08:08
PROVIDERS: Internal Medicine
DX: I82.403 Acute embolism and thrombosis of unspecified deep veins of lower extremity, bilateral (principal); N18.3 Chronic kidney disease, stage 3 (moderate)

== ENCOUNTER → 2019-06-23 | Outpatient (CLI) | payer MEDICARE, BC ==
[2017-07-03 03:45] VITALS: BP 116/69
[2019-06-23 09:07] LABS: PROTHROMBIN TIME 26.5 SECONDS (9.0-12.0)
== END ==
LOC: LAB 08:41
PROVIDERS: Internal Medicine
DX: I82.403 Acute embolism and thrombosis of unspecified deep veins of lower extremity, bilateral (principal); N18.3 Chronic kidney disease, stage 3 (moderate)

== ENCOUNTER → 2019-06-30 | Outpatient (CLI) | payer MEDICARE, BC ==
[2017-07-03 03:45] VITALS: BP 116/69
== END ==
LOC: LAB 11:18
PROVIDERS: Internal Medicine
DX: I82.403 Acute embolism and thrombosis of unspecified deep veins of lower extremity, bilateral (principal); N18.3 Chronic kidney disease, stage 3 (moderate)